=== PATIENT | male | born 1970 | race Caucasian/White ===

== ENCOUNTER 2023-03-02 20:13 | Observation (INO) | payer BC, SELFPAY ==
--- NOTE | ~2023-03-02 | CT_ITS ---
EXAMINATION: CT brain wo con DATE: 03/02/2023 21:51 INDICATION: Confusion TECHNIQUE: Computed tomography (CT) of the head was performed without intravenous contrast. The mA wa s adjusted according to patient size. Iterative reconstruction technique was employed. Exam dose: 11 35.00 mGy-cm total exam DLP. COMPARISON: None FINDINGS: No intracranial mass lesion or hemorrhage or cerebrovascular accident, midline shift or mas s effect is detected. Normal ventricular size There is mild bilateral carotid siphon internal carotid artery calcification. No subdural or epidural hematoma. No skull fracture or bone destruction. There is mildly comparison thickening of the right frontal sinus, prominent patchy soft tissue thicke saba the ethmoid air cells, mild periosteal thickening of the left maxillary sinus. Normal development and aeration of the paranasal sinuses. IMPRESSION: Cerebral atherosclerosis Reviewed, dictated and finalized at [facility]. Reviewed, dictated and finalized at location A. T CONTROL OPERATOR IMPRESSION: Cerebral atherosclerosis
--- NOTE | ~2023-03-02 | XR_ITS ---
EXAMINATION: XR chest 1V portable INDICATION: Overdose TECHNIQUE: Portable AP chest at 2314 hours COMPARISON: None available FINDINGS: The lungs are free of acute opacities. No pleural effusion or pneumothorax. The cardiomedia stinal silhouette is normal. IMPRESSION: 1. No acute cardiopulmonary abnormality. Reviewed, dictated and finalized at location F. HOLOGY LECTURER
[2023-03-02 20:11] VITALS: BP 152/102; PULSE 104; RESP 16; TEMP 36.6; O2SAT 100
--- NOTE | 2023-03-02 20:19 | ECG_ITS ---
Measurements Intervals [place] Rate: 102 P: 63 SC: 163 QRS: 49 QRSD: 94 T: 53 QT: 274 QTc: 357 Interpretive Statements SINUS TACHYCARDIA LEFT ATRIAL ENLARGEMENT BORDERLINE ST ABNORMALITY- LATERAL LEADS BORDERLINE ECG NO PREVIOUS ECG AVAILABLE FOR COMPARISON Electronically Signed On 03-03-2023 10:24:26 TEST ENGINE EVALUATOR by Oscar Chapin D.O.
[2023-03-02 20:26] LABS: Basophils Percent Auto 0.2 % (0.2-1.2); Eosinophils Percent Auto 0.1 % (0-4.4); Hematocrit 47.5 % (42.0-52.0); Hemoglobin 15.6 g/dL (14.0-18.0); Immature Granulocyte Absolute 0.05 K/mm3 (0.00-0.031); Immature Granulocyte Percent A 0.4 % (0-0.5); Lymphocytes Absolute Auto 0.65 K/mm3 (0.9-3.2); Lymphocytes Percent Auto 5.2 % (18.3-44.2); Mean Corpuscular HGB Conc 32.8 g/dl (32-36); Mean Corpuscular Hemoglobin 30.8 pg (26-34); Mean Corpuscular Volume 93.7 fl (80-100); Mean Platelet Volume 9.7 fl (7.4-10.4); Monocytes Absolute Auto 0.4 K/mm3 (0.1-0.6); Monocytes Percent Auto 2.9 % (2.6-8.5); Neutrophils Absolute Auto 11.5 K/mm3 (1.3-6.7); Neutrophils Percent Auto 91.2 % (45.5-73.1); Platelet Count Result 303 k/mm3 (150-375); Red Blood Count 5.07 M/mm3 (4.6-6.20); Red Cell Distribution Width 13.6 % (11.5-14.5); White Blood Count 12.6 K/mm3 (4.5-10.0)
[2023-03-02 20:39] LABS: Alanine Aminotransferase 14 U/L (6-50); Albumin Level 4.6 g/dL (3.5-5.1); Alkaline Phosphatase 59 U/L (38-126); Anion Gap 14 mmol/L (8-16); Aspartate Amino Transferase 24 U/L (17-59); Bilirubin,Total 0.9 mg/dL (0.2-1.3); Blood Urea Nitrogen 13 mg/dL (9-20); Calcium 9.2 mg/dL (8.4-10.2); Carbon Dioxide 23 mmol/L (22-30); Chloride 106 mmol/L (98-107); Estimated CRCL calculation 70 ml/min; Estimated Glomerular Filt Rate > 60; Glucose 78 mg/dL (65-110); Potassium 3.9 mmol/L (3.4-5.0); Sodium 143 mmol/L (137-145)
[2023-03-02 20:40] LABS: Acetaminophen < 10 ug/mL (10-30); Ethanol < 10 mg/dL (<10); Salicylate < 1.0 mg/dL (2-20)
--- NOTE | 2023-03-02 20:40 | PC.NURSE ---
Spoke with family at bedside who state they had not seen him since Monday. They report that the patient lives at home alone and the family had not heard from him, so they went to check on him at his house. They report that he was recently diagnosed with prostate cancer and has made comments about wanting to harm himself approximately three weeks ago. Patient currently denies SI or HI. Family states that the Benadryl bottle was full last time they were there.
[2023-03-02 21:09] LABS: Thyroid Stimulating Hormone 0.931 uIU/mL (0.465-4.680)
--- NOTE | 2023-03-02 21:38 | ED.GENADULT ---
HPI - General Adult General Chief complaint: Overdose Stated complaint: OVERDOSE Time Seen by Provider: 03/02/23 20:48 History of Present Illness HPI narrative: This is a 52-year-old male presenting for suicide attempt. Patient has been making comments over the last several months his that he is depressed and he has considered suicide. He did not show for Thanksgiving today. When family went to his house they found him altered with a empty bottle of Benadryl next to him. At this time the patient is nonverbal but alert and moving 4 extremities. Stressors include the of a child in the last year and a recent prostate cancer dx. Related Data Allergies Allergy/AdvReac Type Severity Reaction Status Date / Time No Known Allergies Allergy Verified 03/02/23 20:18 Exam Narrative: APPEARANCE: nonverbal, tremulous Head: atraumatic. EYES: EOMI, ETHEL NOSE: Atraumatic NECK: Trachea midline RESPIRATORY: No increased rate of breathing, CTAB CARDIOVASCULAR: RRR, no peripheral edema ABDOMINAL: Non-distended soft nontender no guarding rebound MUSCULOSKELETAl: No obvious deformities NEURO: awake and alert but nonverbal. Moving for 4 extremities SKIN:: Warm, dry. Normal color Course Vital Signs Vital signs: Vital Signs Temperature 97.8 F 03/02/23 20:11 Pulse Rate 104 H 03/02/23 20:11 Respiratory Rate 16 03/02/23 20:11 Blood Pressure 152/102 H 03/02/23 20:11 Pulse Oximetry 100 03/02/23 20:11 Oxygen Delivery Room Air 03/02/23 20:11 Temperature 97.8 F 03/02/23 20:11 Pulse Rate 98 03/02/23 22:49 Respiratory Rate 20 03/02/23 22:49 Blood Pressure 148/88 H 03/02/23 22:49 Pulse Oximetry 98 03/02/23 22:49 Oxygen Delivery Room Air 03/02/23 20:11 Medical Decision Making MDM Narrative Medical decision making narrative: -Course: 52-year-old male presenting with suicide attempt via Benadryl. Poison control was contacted recommended supportive care. At this time the patient is still altered and will require stabilization before he is evaluated for psychiatric admission. Patient will be admitted to the ICU for further management. -DDX includes but is not limited to: Suicide attempt, benadryl overdose, etoh, ICH, polypharmacy -Co-morbidities complicating care: prostate CA -Hx from independent Sources: and daughter at bedside -Independent interpretation of studies: White blood cell count 12.6. CBC normal. Urinalysis unremarkable. Urine drug screen negative. Alcohol undetectable. CT head: Cerebral atherosclerosis Independent EKG interpretation: Rhythm [sinus], Rate 102, Kinde -[normal], NC -[normal], QRS [narrow], QTC [normal], T waves -[negative for concerning inversions], ST Segments - [Negative for concerning elevations] Final interpretations: Sinus tachycardia Ch -Discussion of Management/Consultants: poison control [facility] -Interventions:2 L Ns -Shared decision making / Disposition:admitted. Vital Signs Vital Signs: Vital Signs Temperature 97.8 F 03/02/23 20:11 Pulse Rate 104 H 03/02/23 20:11 Respiratory Rate 16 03/02/23 20:11 Blood Pressure 152/102 H 03/02/23 20:11 Pulse Oximetry 100 03/02/23 20:11 Oxygen Delivery Room Air 03/02/23 20:11 Temperature 97.8 F 03/02/23 20:11 Pulse Rate 98 03/02/23 22:49 Respiratory Rate 20 03/02/23 22:49 Blood Pressure 148/88 H 03/02/23 22:49 Pulse Oximetry 98 03/02/23 22:49 Oxygen Delivery Room Air 03/02/23 20:11 Lab Data 03/02/23 20:21 03/02/23 20:21 Labs: Lab Results 03/02/23 03/02/23 Range/Units 20:21 21:56 WBC 12.6 H (4.5-10.0) K/mm3 RBC 5.07 (4.6-6.20) M/mm3 Hgb 15.6 (14.0-18.0) g/dL Hct 47.5 (42.0-52.0) % MCV 93.7 (80-100) fl MCH 30.8 (26-34) pg MCHC 32.8 (32-36) g/dl RDW 13.6 (11.5-14.5) % Plt Count 303 (150-375) k/mm3 MPV 9.7 (7.4-10.4) fl Immature Gran % (Auto) 0.4 (0-0.5)
--- NOTE | 2023-03-02 21:44 | PC.NURSE ---
Poison Control contacted who advise supportive care, watch for anticholinergic effects, check CK and Mag levels, watch Potassium, repeat EKG in four hours and monitor patient temperature. Advised to watch for prolonged QT.
[2023-03-02 21:59] LABS: Creatine Kinase 273 U/L (55-170)
[2023-03-02 22:16] LABS: Appearance Urine Clear (Clear); Bacteria Urine None Seen /hpf; Bilirubin Urine Negative (Negative); Blood Urine Trace (Negative); Color Urine Yellow (Yellow); Glucose Urine UA Negative (Negative); Ketones Urine 1+ mg/dL (Negative); Leukocyte Esterase Ur 1+ LEU/UL (Negative); Need Manual Microscopic Reviewed; Nitrate Urine Negative (Negative); Non Pathogenic Casts 0-2; Protein Urine Negative (Negative); RBC Urine 0-2 /hpf (0-2); Specific Grav Ur 1.013 (1.001-1.035); Squamous Epithelial Cell Urine None seen /hpf (Few); Urobilinogen Urine 0.2 mg/dL (<2.0); WBC Urine 0-5 /hpf; pH Urine 5.5 (5.0-9.0)
[2023-03-02 22:17] LABS: Add Urine Microscopic? YES
[2023-03-02 22:20] LABS: Amphetamine Screen Urine Negative (Negative); Barbiturate Screen Urine Negative (Negative); Benzodiazepines Screen Urine Negative (Negative); Cannabinoid Screen Urine Negative (Negative); Cocaine Screen Urine Negative (Negative); Methadone Screen Urine Negative (Negative); Opiate Screen Urine Negative (Negative); Phencyclidine Screen Urine Negative (Negative)
[2023-03-02 22:49] VITALS: BP 148/88; PULSE 98; RESP 20; O2SAT 98
[2023-03-02] MEDS: SODIUM CHLORIDE 0.9% IV 3,000 ML 999 ML IV CONT (23:23)
--- NOTE | 2023-03-02 23:56 | PM.IMHP ---
H&P: HPI History of Present Illness Date/Time: 03/02/23 23:56 Chief Complaint: Patient admitted after a suicide attempt with Benadryl overdose Narrative: He is an unfortunate patient with a history of depression who lives alone. He has been making comments over the last few months to his ex- that he has considered suicide. His stresses include of a child in the last year and recent diagnosis of prostate cancer. He did not show up for family [employer] today. When family went to his house, they found him with altered mental status and an empty bottle of Benadryl next to him. He may have consumed up to 50 Tablets of OTC Benadryl. EMS was called and patient brought to the ER for evaluation. He is nonverbal but alert and moves all 4 extremities. Poison control was called who advised to place the patient under observation and close monitoring. Review of Systems Review of Systems: unable to obtain. Patient is pleasantly confused ROS unobtainable: Yes unobtainable due to medical condition and unobtainable due to mental status PMFSH Social History Social History Smoking status: Never smoker Smokeless tobacco user: chewing tobacco Alcohol intake: current Drinks per week: 2 Substance use: never Lack of Transportation: No Lack of Food: Never True Current Housing: Decline to Answer Concerned About Future Housing: No Difficulty Paying Gas/Electric Bills: No Difficulty Paying for Meds: No Currently Unemployed: No Education: Decline to Answer Difficulty w/ Childcare or Family Care: No Spiritual care concerns: No Meds Home Medications and Allergies Home Medications Medication Instructions Recorded Confirmed Type paroxetine HCl 30 mg tablet 30 mg PO HS 03/03/23 03/03/23 History Allergies Allergy/AdvReac Type Severity Reaction Status Date / Time No Known Allergies Allergy Verified 03/02/23 20:18 Vital Signs Vital Signs - 24 hr 03/02/23 20:11 03/02/23 22:49 Temperature 36.6 C Pulse Rate 104 H 98 Respiratory Rate 16 20 Blood Pressure 152/102 H 148/88 H Pulse Oximetry 100 98 Oxygen Delivery Room Air Exam Narrative: PHYSICAL EXAMINATION: Vital signs: Please see the chart General physical exam: patient is pleasantly confused Head/eyes: Atraumatic, EOMI, PERRLA ENT: Moist mucous membranes, nasal passages clear Neck: Supple, full range of motion, trachea midline CVS: S1 + S2, regular rate and rhythm, no murmurs Respiratory: Bilaterally fair air entry in both lung echevarria, mild B/L crackles, symmetric chest expansion, no distress Abdomen: Soft, non-tender, bowel sounds +ve, no organomegaly Extremities: No clubbing, no cyanosis, no edema, no calf tenderness Musculoskeletal: Moves all, adequate range of motion, no muscle spasms Skin: Warm, dry, no jaundice, no cyanosis Neurological: Unable to be obtained. Patient is pleasantly confused Psychiatric: Unable to be obtained. Patient is pleasantly confused H&P: Results Labs Labs: Short CBC 03/02/23 Range/Units 20:21 WBC 12.6 H (4.5-10.0) K/mm3 Hgb 15.6 (14.0-18.0) g/dL Hct 47.5 (42.0-52.0) % Plt Count 303 (150-375) k/mm3 BMP 03/02/23 20:21 Sodium 143 Potassium 3.9 Chloride 106 Carbon Dioxide 23 BUN 13 Creatinine 0.90 Glucose 78 Calcium 9.2 Cardiac Enzymes 03/02/23 Range/Units 20:21 Total Creatine Kinase 273 H (55-170) U/L Liver Function 03/02/23 Range/Units 20:21 Total Bilirubin 0.9 (0.2-1.3) mg/dL AST 24 (17-59) U/L ALT 14 (6-50) U/L Alkaline Phosphatase 59 (38-126) U/L Albumin 4.6 (3.5-5.1) g/dL Urine 03/02/23 Range/Units 21:56 Urine Color Yellow (Yellow) Urine Appearance Clear (Clear) Urine pH 5.5 (5.0-9.0) Ur Specific [place] 1.013 (1.001-1.035) Urine Protein Negative (Negative) mg/dL Urine Glucose (UA) Negative (Negative) m
--- NOTE | 2023-03-03 00:37 | PC.NURSE ---
ICU called for report. They state they need ten minutes to get the room ready.
--- NOTE | 2023-03-03 01:06 | ADMGEN ---
This patient, Dell Morin, was admitted to Intensive Care Unit-6. Patient/family oriented to hospital policies and general routines including ID bracelet, bed and alarms, visiting hours, pain management, procedures, bathroom and other care routines, personal items, smoking policy, room service/diet, and visiting hours. Information on how to activate the Rapid Response Team has been discussed. Patient/Family are encouraged to report perceived risks to care and to ask questions if they do not understand what they are told or what they should do.
[2023-03-03 01:07] VITALS: BMI 22.0
[2023-03-03 01:35] VITALS: BP 146/95; PULSE 78; RESP 20; O2SAT 100
--- NOTE | 2023-03-03 02:51 | ECG_ITS ---
Measurements Intervals [place] Rate: 74 P: 51 TN: 149 QRS: 52 QRSD: 91 T: 55 QT: 412 QTc: 457 Interpretive Statements SINUS RHYTHM NORMAL ECG COMPARED TO ECG 03/02/2023 20:18:04 SINUS RHYTHM NOW PRESENT Electronically Signed On 03-03-2023 10:31:39 DIRECTOR OF CARDIAC REHABILITATION by Oscar Chapin D.O.
[2023-03-03 03:18] VITALS: BP 129/79; PULSE 88; RESP 16; TEMP 36.6; O2SAT 97
[2023-03-03] MEDS: DEXTROSE 5%/0.45% SOD CHL 1,000 ML 100 ML IV CONT ×2 (04:24→15:56)
[2023-03-03 04:45] LABS: Basophils Percent Auto 0.4 % (0.2-1.2); Eosinophils Absolute Auto 0.1 K/mm3 (0-0.3); Eosinophils Percent Auto 0.5 % (0-4.4); Hematocrit 41.8 % (42.0-52.0); Hemoglobin 13.5 g/dL (14.0-18.0); Immature Granulocyte Absolute 0.02 K/mm3 (0.00-0.031); Immature Granulocyte Percent A 0.2 % (0-0.5); Lymphocytes Absolute Auto 1.86 K/mm3 (0.9-3.2); Lymphocytes Percent Auto 19.3 % (18.3-44.2); Mean Corpuscular HGB Conc 32.3 g/dl (32-36); Mean Corpuscular Hemoglobin 30.5 pg (26-34); Mean Corpuscular Volume 94.4 fl (80-100); Mean Platelet Volume 10.1 fl (7.4-10.4); Monocytes Absolute Auto 0.7 K/mm3 (0.1-0.6); Monocytes Percent Auto 7.2 % (2.6-8.5); Neutrophils Percent Auto 72.4 % (45.5-73.1); Platelet Count Result 273 k/mm3 (150-375); Red Blood Count 4.43 M/mm3 (4.6-6.20); Red Cell Distribution Width 13.6 % (11.5-14.5); White Blood Count 9.6 K/mm3 (4.5-10.0)
[2023-03-03 04:55] LABS: Anion Gap 10 mmol/L (8-16); Blood Urea Nitrogen 11 mg/dL (9-20); Calcium 8.2 mg/dL (8.4-10.2); Carbon Dioxide 21 mmol/L (22-30); Chloride 112 mmol/L (98-107); Estimated CRCL calculation 88 ml/min; Estimated Glomerular Filt Rate > 60; Glucose 99 mg/dL (65-110); Magnesium 1.8 mg/dL (1.6-2.3); Phosphorus 2.6 mg/dL (2.5-4.5); Potassium 3.5 mmol/L (3.4-5.0); Sodium 143 mmol/L (137-145)
[2023-03-03 08:00] VITALS: BP 138/82; PULSE 88; RESP 24; TEMP 36.6; O2SAT 98
--- NOTE | 2023-03-03 08:11 | PM.IMPN ---
Progress Note: A&P Assessment and Plan (1) Major depression, recurrent, chronic: Code(s): F33.9 - Major depressive disorder, recurrent, unspecified Status: Acute Assessment and Plan: He has history of major depression, currently on meds, with major stresses including child last year and recent diagnosis of prostate cancer Care coordination consult ordered for crisis intervention 03/03: Discussed pt with Dr. Ciro Balderrama from psychiatry. [phone] His recommendation is to call care coordination and have pt transferred to inpatient psychiatry for hospitalization for suicidal attempt and no concrete plan preventing recurrent suicidal attempts. High risk of recurrent suicidal attempt, this time with firearm was confirmed with his Fara. [phone] (2) Drug overdose: Code(s): T50.901A - Poisoning by unspecified drugs, medicaments and biological substances, accidental (unintentional), initial encounter Status: Acute Assessment and Plan: Place patient under observation status in ICU Patient is pleasantly confused and nonverbal yet moving all 4 extremities Initial EKG was done which showed borderline sinus tachycardia? with nonspecific ST T wave changes Monitor labs and electrolytes closely and order another EKG in Poison control center was called who advised close monitoring of the patient for symptomatic management (3) Suicide attempt by multiple drug overdose: Code(s): T50.912A - Poisoning by multiple unspecified drugs, medicaments and biological substances, intentional self-harm, initial encounter Status: Acute Assessment and Plan: 03/03: See above (4) Rhabdomyolysis: Code(s): M62.82 - Rhabdomyolysis Status: Acute Assessment and Plan: 03/03: elevated ck to [address] d5 1/2 ns at 100 ml/hr. f/u level today and tomorrow. if downtrending, can dc tomorrow (5) Prostate cancer: Code(s): C61 - Malignant neoplasm of prostate Status: Acute Assessment and Plan: 03/03: being followed by outpt physician. f/u AM PSA. Plan ? Patient seen and examined at bedside ? Collaborated with patient's nurse at the bedside in detail and addressed all concerns ? Labs, electrolytes,? radiology, investigations and test results reviewed I spent around 60 minutes of direct patient care including (but not limited to) bedside evaluation, physical examination, decision-making, review of medical records, labs and investigations, discussion with the nursing staff and co-ordination of team-based critical care management of the patient. Subjective Date/time seen: 03/03/23 08:11 Interval history: pt denies any complaints. says he took >50 tablets of a [facility] sleep aid, does not know what it contained. on a google search, it appears to contain 25 mg of benadryl per dose. Exam Narrative: General physical exam:? aox3 Head/eyes: Atraumatic, EOMI, PERRLA ENT: Moist mucous membranes, nasal passages clear Neck: Supple, full range of motion, trachea midline CVS: S1 + S2, regular rate and rhythm, no murmurs Respiratory: Bilaterally fair air entry in both lung echevarria, mild B/L crackles, symmetric chest expansion, no distress Abdomen: Soft, non-tender, bowel sounds +ve, no organomegaly Extremities: No clubbing, no cyanosis, no edema, no calf tenderness Musculoskeletal: Moves all, adequate range of motion, no muscle spasms Skin: Warm, dry, no jaundice, no cyanosis Neurological:? no focal deficits Psychiatry: has a depressed affect and is very hesitant to answer questions Objective Data Vital Signs Vital Signs: Vital Signs - 24 hr 03/02/23 20:11 03/02/23 22:49 03/03/23 01:35 Temperature 97.8 F Pulse Rate 104 H 98 78 Respiratory Rate 16 20 20 Blood Pressure 152/102 H 148/88 H 146/95 H Pulse Oximetry 100 98 100 Oxygen Delivery Room Air 03/03/23 03:18 Temperature 97.9 F Pulse Rate 88 Respiratory Rate 16 Blood Pressure 129/79 Pulse Oxime
[2023-03-03] MEDS: CALCIUM GLUC 1,000 MG/NS 50 ML 1,000 MG/50 ML BAG 100 MG IVPB (08:46)
[2023-03-03 10:49] LABS: Influenza A QL RT-PCR Negative (Negative); Influenza B QL RT-PCR Negative (Negative); RSV RNA, RT-PCR Negative (Negative); SARS-CoV-2 RNA PCR Negative (Negative)
[2023-03-03] MEDS: NICOTINE (*PBKC) 21 MG PATCH 1 PATCH TRANSDERM (10:51)
[2023-03-03 12:00] VITALS: BP 132/68; PULSE 75; RESP 18; TEMP 36.6; O2SAT 97
[2023-03-03 13:55] LABS: Creatine Kinase 4258 U/L (55-170)
[2023-03-03 16:00] VITALS: BP 130/79; PULSE 76; RESP 15; TEMP 36.9; O2SAT 96
[2023-03-03 20:00] VITALS: BP 131/83; PULSE 82; RESP 18; TEMP 36.8; O2SAT 99
[2023-03-04] VITALS (7 sets, daily range): BP systolic 119–149; BP diastolic 83–96; PULSE 65–76; RESP 12–19; TEMP 36.4–36.8; O2SAT 97–100
[2023-03-04] MEDS: DEXTROSE 5%/0.45% SOD CHL 1,000 ML 100 ML IV CONT ×3 (01:25→20:16)
[2023-03-04] MEDS: PANTOPRAZOLE 40 MG TABLET PO ×2 (01:25→20:15)
[2023-03-04 04:37] LABS: Basophils Percent Auto 0.6 % (0.2-1.2); Eosinophils Absolute Auto 0.3 K/mm3 (0-0.3); Eosinophils Percent Auto 4.8 % (0-4.4); Hematocrit 42.7 % (42.0-52.0); Hemoglobin 13.9 g/dL (14.0-18.0); Immature Granulocyte Absolute 0.01 K/mm3 (0.00-0.031); Immature Granulocyte Percent A 0.1 % (0-0.5); Lymphocytes Absolute Auto 1.98 K/mm3 (0.9-3.2); Lymphocytes Percent Auto 29.6 % (18.3-44.2); Mean Corpuscular HGB Conc 32.6 g/dl (32-36); Mean Corpuscular Hemoglobin 30.9 pg (26-34); Mean Corpuscular Volume 94.9 fl (80-100); Mean Platelet Volume 10.1 fl (7.4-10.4); Monocytes Absolute Auto 0.6 K/mm3 (0.1-0.6); Monocytes Percent Auto 8.2 % (2.6-8.5); Neutrophils Absolute Auto 3.8 K/mm3 (1.3-6.7); Neutrophils Percent Auto 56.7 % (45.5-73.1); Platelet Count Result 252 k/mm3 (150-375); Red Cell Distribution Width 13.6 % (11.5-14.5); White Blood Count 6.7 K/mm3 (4.5-10.0)
[2023-03-04 04:53] LABS: Alanine Aminotransferase 23 U/L (6-50); Albumin Level 3.6 g/dL (3.5-5.1); Alkaline Phosphatase 46 U/L (38-126); Anion Gap 8 mmol/L (8-16); Aspartate Amino Transferase 52 U/L (17-59); Bilirubin,Total 0.5 mg/dL (0.2-1.3); Blood Urea Nitrogen 11 mg/dL (9-20); Calcium 8.6 mg/dL (8.4-10.2); Carbon Dioxide 26 mmol/L (22-30); Chloride 108 mmol/L (98-107); Estimated CRCL calculation 88 ml/min; Estimated Glomerular Filt Rate > 60; Glucose 108 mg/dL (65-110); Potassium 4.3 mmol/L (3.4-5.0); Sodium 142 mmol/L (137-145)
[2023-03-04 05:02] LABS: Creatine Kinase 1920 U/L (55-170)
--- NOTE | 2023-03-04 09:30 | PM.IMPN ---
Progress Note: A&P Assessment and Plan (1) Major depression, recurrent, chronic: Code(s): F33.9 - Major depressive disorder, recurrent, unspecified Status: Acute Assessment and Plan: He has history of major depression, currently on meds, with major stresses including child last year and recent diagnosis of prostate cancer Care coordination consult ordered for crisis intervention 03/03: Discussed pt with Dr. Ciro Balderrama from psychiatry. [phone] His recommendation is to call care coordination and have pt transferred to inpatient psychiatry for hospitalization for suicidal attempt and no concrete plan preventing recurrent suicidal attempts. High risk of recurrent suicidal attempt, this time with firearm was confirmed with his Fara. [phone] 03/04: Will restart pt on paroxetine. I will dc this pt home tomorrow after creatinine kinase level comes back at a lower level. Pt cannot go to in psych facility because his job [place]. 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 Firearms have been removed from the pt's house. Pt will see PCP this week. Dr. Jose A Arzola in [place] and associated INSURANCE OFFICE SUPERVISOR [phone] (2) Drug overdose: Code(s): T50.901A - Poisoning by unspecified drugs, medicaments and biological substances, accidental (unintentional), initial encounter Status: Acute Assessment and Plan: Place patient under observation status in ICU Patient is pleasantly confused and nonverbal yet moving all 4 extremities Initial EKG was done which showed borderline sinus tachycardia? with nonspecific ST T wave changes Monitor labs and electrolytes closely and order another EKG in Poison control center was called who advised close monitoring of the patient for symptomatic management (3) Suicide attempt by multiple drug overdose: Code(s): T50.912A - Poisoning by multiple unspecified drugs, medicaments and biological substances, intentional self-harm, initial encounter Status: Acute Assessment and Plan: 03/03: See above (4) Rhabdomyolysis: Code(s): M62.82 - Rhabdomyolysis Status: Acute Assessment and Plan: 03/03: elevated ck to [address] d5 1/2 ns at 100 ml/hr. f/u level today and tomorrow. if downtrending, can dc tomorrow 03/04: Level lower now, 1920 today. recheck level tomorrow, then dc tomorrow home. pt unable to go to inpt psych facility. if I commit this pt to inpt psych, he will lose his job on Monday and may end trying another suicide attempt. (5) Prostate cancer: Code(s): C61 - Malignant neoplasm of prostate Status: Acute Assessment and Plan: 03/03: being followed by outpt physician. f/u AM PSA. Plan I spent around 45 minutes of direct patient care including (but not limited to) bedside evaluation, physical examination, decision-making, review of medical records, labs and investigations, discussion with the nursing staff and co-ordination of team-based critical care management of the patient. Subjective Date/time seen: 03/04/23 09:30 Interval history: pt denies any complaints. wants to go home. Pt's is in the room. She confirms that all firearms have been removed from pt's house. 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 Also now pt and are giving a different story that he took an unknown quantity dose of benadryl over a period of time, not just one time in a suicide attempt. Exam Narrative: General physical exam:? aox3 Head/eyes: Atraumatic, EOMI, PERRLA ENT: Moist mucous membranes, nasal passages clear Neck: Supple, full range of motion, trachea midline CVS: S1 + S2, regular rate and rhythm, no murmurs Respiratory: Bilaterally fair air entry in both lung echevarria, mild B/L crackles, symmetric chest expansion, no distress Abdomen: Soft, non-tender, bowel sounds +ve,
[2023-03-04] MEDS: ACETAMINOPHEN 325 MG TABLET 650 MG PO ×3 (09:35→20:12)
[2023-03-04] MEDS: NICOTINE (*PBKC) 21 MG PATCH 1 PATCH TRANSDERM (09:48)
[2023-03-04] MEDS: PARoxetine 10 MG, PARoxetine 20 MG 30 MG PO (09:50)
[2023-03-04] MEDS: traZODone HCL 50 MG TABLET PO (20:16)
[2023-03-05] VITALS: PULSE 69
[2023-03-05 04:00] VITALS: BP 111/78; PULSE 62; PULSE 66; RESP 12; TEMP 36.3; O2SAT 95
[2023-03-05 05:21] LABS: Creatine Kinase 1154 U/L (55-170)
[2023-03-05] MEDS: DEXTROSE 5%/0.45% SOD CHL 1,000 ML 100 ML IV CONT (07:01)
[2023-03-05 07:30] VITALS: BP 126/85; PULSE 69; RESP 19; TEMP 36.5; O2SAT 98
[2023-03-05 08:00] VITALS: PULSE 60; O2SAT 98
--- NOTE | 2023-03-05 08:12 | PC.NURSE ---
Crisis team notified patient at facility.
--- NOTE | 2023-03-05 08:14 | PM.IMPN ---
Progress Note: A&P Assessment and Plan (1) Major depression, recurrent, chronic: Code(s): F33.9 - Major depressive disorder, recurrent, unspecified Status: Acute Assessment and Plan: He has history of major depression, currently on meds, with major stresses including child last year and recent diagnosis of prostate cancer Care coordination consult ordered for crisis intervention 03/03: Discussed pt with Dr. Ciro Balderrama from psychiatry. [phone] His recommendation is to call care coordination and have pt transferred to inpatient psychiatry for hospitalization for suicidal attempt and no concrete plan preventing recurrent suicidal attempts. High risk of recurrent suicidal attempt, this time with firearm was confirmed with his Fara. [phone] 03/04: Will restart pt on paroxetine. I will dc this pt home tomorrow after creatinine kinase level comes back at a lower level. 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 Firearms have been removed from the pt's house. Pt will see PCP this week. Dr. Jose A Arzola in [place] and associated SLAB INSTALLER [phone] 03/05: Pt now medically stable for dc. CK reduced to lower level of 1154 on D5 04/11 at 100 ml/hr. Can continue oral hydration to lower level down. I recommend the pt going home and seeing psychiatry in the outpt setting. If he does not show up for work on Monday, he may lose his job, which would add another stress on this man, who has been threatening suicidal attempts due to increased stressors in his life. As mentioned, firearms have been removed out of his house by his . I will talk to crisis management when they arrive (2) Drug overdose: Code(s): T50.901A - Poisoning by unspecified drugs, medicaments and biological substances, accidental (unintentional), initial encounter Status: Acute Assessment and Plan: Place patient under observation status in ICU Patient is pleasantly confused and nonverbal yet moving all 4 extremities Initial EKG was done which showed borderline sinus tachycardia? with nonspecific ST T wave changes Monitor labs and electrolytes closely and order another EKG in Poison control center was called who advised close monitoring of the patient for symptomatic management 03/05: pt has been cleared by poison control (3) Suicide attempt by multiple drug overdose: Code(s): T50.912A - Poisoning by multiple unspecified drugs, medicaments and biological substances, intentional self-harm, initial encounter Status: Acute Assessment and Plan: 03/03: See above (4) Rhabdomyolysis: Code(s): M62.82 - Rhabdomyolysis Status: Acute Assessment and Plan: 03/03: elevated ck to [address] d5 1/2 ns at 100 ml/hr. f/u level today and tomorrow. if downtrending, can dc tomorrow 03/04: Level lower now, 1920 today. recheck level tomorrow, then dc tomorrow home. pt unable to go to inpt psych facility. if I commit this pt to inpt psych, he will lose his job on Monday and may end trying another suicide attempt. 03/05: Pt now medically stable for dc. CK reduced to lower level of 1154 on D5 1/2 at 100 ml/hr. Can continue oral hydration to lower level down. (5) Prostate cancer: Code(s): C61 - Malignant neoplasm of prostate Status: Acute Assessment and Plan: 03/03: being followed by outpt physician. f/u AM PSA. Plan I spent around 45 minutes of direct patient care including (but not limited to) bedside evaluation, physical examination, decision-making, review of medical records, labs and investigations, discussion with the nursing staff and co-ordination of team-based critical care management of the patient. Subjective Date/time seen: 03/05/23 08:14 Interval history: pt doing well today. no complaints. Exam Narrative: General physical exam
--- NOTE | 2023-03-05 10:18 | PC.NURSE ---
[place] team at bedside. Assessment completed.
--- NOTE | 2023-03-05 10:26 | PM.DS ---
DS: Admitting Diagnosis Discharge Date 03/05/23 Admitting Diagnosis Suicidal attempt/ Major Depressive D/o DS: Discharge Diagnosis Discharge Diagnosis Plan (1) Major depression, recurrent, chronic: ?Code(s): F33.9 - Major depressive disorder, recurrent, unspecified ?Status:?Acute ?Assessment and Plan: He has history of major depression, currently on meds, with major stresses including child last year and recent diagnosis of prostate cancer Care coordination consult ordered for crisis intervention 03/03: Discussed pt with Dr. Ciro Balderrama from psychiatry. [phone] His recommendation is to call care coordination and have pt transferred to inpatient psychiatry for hospitalization for suicidal attempt and no concrete plan preventing recurrent suicidal attempts. High risk of recurrent suicidal attempt, this time with firearm was confirmed with his [employer]. [phone] 03/04: Will restart pt on paroxetine. I will dc this pt home tomorrow after creatinine kinase level comes back at a lower level. 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 Firearms have been removed from the pt's house. Pt will see PCP this week. Dr. Jose A Arzola in [place] and associated CENTER DIRECTOR [phone] 03/05: Pt now medically stable for dc. CK reduced to lower level of 1154 on D5 04/11 at 100 ml/hr. Can continue oral hydration to lower level down. I recommend the pt going home and seeing psychiatry in the outpt setting. If he does not show up for work on Monday, he may lose his job, which would add another stress on this man, who has been threatening suicidal attempts due to increased stressors in his life. As mentioned, firearms have been removed out of his house by his . I will talk to crisis management when they arrive 03/05: crisis management saw pt. ok'd pt to be discharged. Pt will see psychiatrist and PCP as an outpatient. (2) Drug overdose: ?Code(s): T50.901A - Poisoning by unspecified drugs, medicaments and biological substances, accidental (unintentional), initial encounter ?Status:?Acute ?Assessment and Plan: Place patient under observation status in ICU Patient is pleasantly confused and nonverbal yet moving all 4 extremities Initial EKG was done which showed borderline sinus tachycardia? with nonspecific ST T wave changes Monitor labs and electrolytes closely and order another EKG in Poison control center was called who advised close monitoring of the patient for symptomatic management 03/05: pt has been cleared by poison control (3) Suicide attempt by multiple drug overdose: ?Code(s): T50.912A - Poisoning by multiple unspecified drugs, medicaments and biological substances, intentional self-harm, initial encounter ?Status:?Acute ?Assessment and Plan: 03/03: See above (4) Rhabdomyolysis: ?Code(s): M62.82 - Rhabdomyolysis ?Status:?Acute ?Assessment and Plan: 03/03: elevated ck to [address] d5 1/2 ns at 100 ml/hr. f/u level today and tomorrow. if downtrending, can dc tomorrow 03/04: Level lower now, 1920 today. recheck level tomorrow, then dc tomorrow home. pt unable to go to inpt psych facility. if I commit this pt to inpt psych, he will lose his job on Monday and may end trying another suicide attempt. 03/05: Pt now medically stable for dc. CK reduced to lower level of 1154 on D5 1/2 at 100 ml/hr. Can continue oral hydration to lower level down. (5) Prostate cancer: ?Code(s): C61 - Malignant neoplasm of prostate ?Status:?Acute ?Assessment and Plan: 03/03: being followed by outpt physician. f/u AM PSA. Plan I spent around 45 minutes of direct patient care including (but not limited to) bedside evaluation, physical examination, decision-making, review of medical records, labs and investigations, discussion with the nursing staff and
== END 2023-03-05 10:50 | disposition home or self-care (01) ==
LOC: ANHED 23:54 → ANHICU 03-03 01:20
PROVIDERS: Admitting Provider Family Medicine; Emergency Provider Emergency Medicine; PCP Internal Medicine; Visit Provider Internal Medicine
DX: F33.9 Major depressive disorder, recurrent, unspecified (principal); T50.912A Poisoning by multiple unspecified drugs, medicaments and biological substances, intentional self-harm, initial encounter; M62.82 Rhabdomyolysis; C61 Malignant neoplasm of prostate; Z20.822 Contact with and (suspected) exposure to COVID-19; I67.2 Cerebral atherosclerosis; Z63.4 Disappearance and death of family member; F17.290 Nicotine dependence, other tobacco product, uncomplicated; F10.90 Alcohol use, unspecified, uncomplicated; Y90.0 Blood alcohol level of less than 20 mg/100 ml; Z79.899 Other long term (current) drug therapy
CPT/HCPCS: 36415; 70450; 71045; 80048; 80053; 80307; 81001; 82550; 83735; 84100; 84443; 85025; 87637; 93005; 96361; 96374; 99285; A9270; G0378; J0612; J7030

== ENCOUNTER 2024-01-17 16:56 | Emergency (ER) | payer OTHER, SELFPAY ==
--- NOTE | 2024-01-17 16:59 | ED.URI ---
HPI - URI/Sore Throat General Chief Complaint: Upper Respiratory Infection Stated Complaint: Covid test Time Seen by Provider: 01/17/24 17:06 Source: patient, RN notes reviewed and old records reviewed Mode of arrival: ambulatory Limitations: no limitations History of Present Illness HPI Narrative: 53-year-old male presents to the [facility] requesting a COVID test. Patient reports he tested positive last , 6 days ago. Sx for 6-7 Patient reports that he had tested positive at home, had 100 for fever and body aches Patient currently no symptoms. Asking for a test for COVID-19, discussed CDC guidelines and the recommendations of not retesting for 6 months after a positive test Related Data Home Medications Medication Instructions Recorded Confirmed escitalopram oxalate 20 mg tablet mg 01/17/24 01/17/24 Allergies Allergy/AdvReac Type Severity Reaction Status Date / Time No Known Allergies Allergy Verified 01/17/24 17:04 Review of Systems Review of Systems: All systems reviewed & are unremarkable except as noted in HPI and below Constitutional: Constitutional: Reports no additional constitutional complaints Eyes: Eyes: Reports no additional eye complaints ENT: Reports system reviewed and no additional complaints, except as documented Cardiovascular: Cardiovascular: Reports no additional cardiovascular complaints, Denies chest pain and Denies dyspnea Respiratory: Respiratory: Reports no additional respiratory complaints, Denies chest congestion, Denies cough and Denies dyspnea Gastrointestinal: Gastrointestinal: Reports no additional gastrointestinal complaints, Denies abdominal pain, Denies nausea and Denies vomiting Musculoskeletal: Musculoskeletal: Reports no additional musculoskeletal complaints Integumentary/Breasts: Skin/Breast: Reports system reviewed and no additional complaints, except as docu Neurologic: Reports system reviewed and no additional complaints, except as documented Psychiatric: Psychiatric: Reports no additional psychiatric complaints Allergic/Immunologic: Allergic/Immunologic: Reports no additional allergic/immunologic complaints [facility] Social History Social History Smoking status: Never smoker Smokeless tobacco user: chewing tobacco Alcohol intake: current Drinks per week: 2 Substance use: never Lack of Transportation: No Lack of Food: Never True Current Housing: Decline to Answer Concerned About Future Housing: No Difficulty Paying Gas/Electric Bills: No Difficulty Paying for Meds: No Currently Unemployed: No Education: Decline to Answer Difficulty w/ Childcare or Family Care: No Spiritual care concerns: No Comments At the time of my signature, I reviewed and agree with the nursing past medical, surgical, social, and family history. There is no relevant family history pertinent to the patient complaint. Exam Const: General: cooperative, healthy appearing, comfortable, no acute distress, well developed, alert and well nourished Nutritional Appearance: well nourished Orientation/consciousness: patient oriented x3 Limitations: no limitations HENMT: Head: normal to inspection Ears: hearing grossly normal bilaterally and external ears normal Face/Nose/Sinus: Normal external nose present, normal facial exam and face symmetric Face and sinus: normal facial exam and face symmetric Eyes: General: appearance normal, both eyes and all related structures Alignment and Position: alignment normal Periorbital: periorbital findings normal Neck: Neck: normal visual inspection, full ROM, no lymphadenopathy and no meningeal signs Chest: Chest palpation & inspection: normal inspection of the chest Resp: Effort & Inspection: normal respiratory effort and able to speak in complete sentences Cardio: Rate: regular rate Skin: General skin exam: normal color and no rashes or lesions noted Lesions: no le
[2024-01-17 17:07] VITALS: BP 125/87; PULSE 76; RESP 16; TEMP 36.8; O2SAT 99
== END 2024-01-17 17:17 | disposition home or self-care (01) ==
PROVIDERS: Emergency Provider Nurse Practitioner
DX: Z04.89 Encounter for examination and observation for other specified reasons (principal); Z86.16 Personal history of COVID-19; F17.220 Nicotine dependence, chewing tobacco, uncomplicated
CPT/HCPCS: 99211; G0463